=== PATIENT | female | born 1960 | race Caucasian/White ===

== ENCOUNTER 2016-04-20 05:43 | Emergency (ER) | payer BC ==
[~2016-04-20] VITALS: Ht 160 cm; Wt 88.9 kg
--- NOTE | 2016-04-20 06:36 | EKG ---
[facility] [address] [place] [address] Test Date: 2016-04-20 Test Time: 05:55:22 Pat Name: ONI MENA Department: Room: Gender: F [employer] Member: : 1960 Requested By: MARIANNE JONES Order Number: [id number] Reading MD: Nidhi Roque Measurements Intervals [place] Rate: 89 P: 39 MA: 132 QRS: -20 QRSD: 86 T: 55 QT: 364 QTc: 449 Interpretive Statements SINUS RHYTHM LEFTWARD AXIS NO SPECIFIC ECG ABNORMALITIES RI6.01 No previous ECG available for comparison Electronically Signed On 04-21-2016 0:45:31 ACCOUNT UNDERWRITER by Nidhi Roque
--- NOTE | 2016-04-20 06:39 | ED.ADGEN ---
Past Medical History Past Medical History: No Pertinent History Past Surgical History: , Other Additional Past Surgical Histo: BILATERAL KNEE SURGERY Alcohol Use: None Drug Use: None Adult General Chief Complaint Chief Complaint: Palpitations HPI HPI Patient is a 55 year old woman, with no significant past medical history, who presents to the emergency department with a complaint of palpitations. Patient states that she experienced a "fluttering" in her chest that began while she was watching TV around 8:30 last night, and persisted on and off for about an hour. Patient states that she went to bed shortly after 9:30, slept throughout the night without any issue, states that when she awoke this morning she noted she was getting experiencing the fluttering sensation, and came to the ED for evaluation. She denies any chest pain, shortness of breath, any nausea or vomiting, any weakness numbness or tingling, any headache, any injuries, any similar symptoms previously. States that she had her typical cup of coffee during the day, denies any supplements, any other medications, other exposures or ingestions. At this time she states she is not experiencing any sensations, and they have been absent since shortly before she arrived in the emergency department. No swelling extremities, recent travel or surgery, history of DVT or PE himself or family members. Patient did take an aspirin and Aleve before coming to the ED today. Review of Systems Review of Systems Constitutional: Denies fever or chills. [] Eyes: Denies change in visual acuity. [] HENT: Denies nasal congestion or sore throat. [] Respiratory: Denies cough or shortness of breath. [] Cardiovascular: Denies chest pain or edema. [Palpitations. GI: Denies abdominal pain, nausea, vomiting, bloody stools or diarrhea. [] : Denies dysuria. [] Musculoskeletal: Denies back pain or joint pain. [] Integument: Denies rash. [] Neurologic: Denies headache, focal weakness or sensory changes. [] Endocrine: Denies polyuria or polydipsia. [] Lymphatic: Denies swollen glands. [] Psychiatric: Denies depression or anxiety. [] Allergies Allergies Allergies Coded Allergies Type Severity Reaction Last Updated Verified No Known Drug Allergies 04/20/16 No Physical Exam Physical Exam Constitutional: Well developed, well nourished, no acute distress, non-toxic appearance. [] HENT: Normocephalic, atraumatic, bilateral external ears normal, oropharynx moist, no oral exudates, nose normal. [] Eyes: PERRLA, EOMI, conjunctiva normal, no discharge. [] Neck: Normal range of motion, no tenderness, supple, no stridor. [] Cardiovascular:Heart rate regular rhythm, no murmur, S1, S2, no rubs or gallops. [] Lungs & Thorax: Bilateral breath sounds clear to auscultation, no wheezing, rhonchi, rales. No chest tenderness or crepitus. [] Abdomen: Bowel sounds normal, soft, no tenderness, no masses, no rebound, rigidity, no guarding, no pulsatile masses. [] Skin: Warm, dry, no erythema, no rash. [] Back: No tenderness, no CVA tenderness. [] Extremities: No tenderness, no cyanosis, no clubbing, ROM intact, no edema. Negative Homans sign. [] Neurologic: Alert and oriented X 3, normal motor function, normal sensory function, no focal deficits noted. [] Psychologic: Affect normal, judgement normal, mood normal. [] Current Patient Data Vital Signs Vital Signs Date Time Temp Pulse Resp B/P Pulse Ox O2 Delivery O2 Flow Rate FiO2 04/20/16 08:30 74 19 113/69 97 Room Air 04/20/16 05:50 97.9 97.9 Lab Values Laboratory Tests Test 04/20/16 06:15 04/20/16 07:35 White Blood Count 6.0x10^3/uL (4.0-11.0) Red Blood Count 5.46x10^6/uL (3.50-5.40) H Hemoglobin 15.8g/dL (12.0-15.5) H Hematocrit 47.4% (36.0-47.0) H Mean Corpuscular Volume 87fL (79-100) Mean Corpuscular Hemoglobin 29pg (25-35) Mean Corpuscular Hemoglobin Concent 33g/dL (31-37) Red Cell Distribution Width 13.4% (11.5-14.5) Platelet Count 234x10^3/uL (140-400) Sodium Level 142mmol/L (136-145) Potassium Level 3.8mmol/L (3.5-5.1) Chloride Level 105mmol/L (98-107) Carbon Dioxide Level 25mmol/L (21-32) Anion Gap 12 (6-14) Blood Urea Nitrogen 16mg/dL (7-20) Creatinine 0.7mg/dL (0.6-1.0) Estimated GFR (Cockcroft-Gault) 86.6 Glucose Level 101mg/dL (70-99) H Calcium Level 8.8mg/dL (8.5-10.1) Phosphorus Level 3.3mg/dL (2.6-4.7) Magnesium Level 1.8mg/dL (1.8-2.4) Troponin I Quantitative < 0.017ng/mL (0.000-0.055) NK-Wrd-X-Type Natriuretic Peptide 19pg/mL (0-124) Urine Opiates Screen Neg (NEG) Urine Methadone Screen Neg (NEG) Urine Barbiturates Neg (NEG) Urine Phencyclidine Screen Neg (NEG) Urine Amphetamine/Methamphetamine Neg (NEG) Urine Benzodiazepines Screen Neg (NEG) Urine Cocaine Screen Neg (NEG) Urine Cannabinoids Screen Neg (NEG) Urine Ethyl Alcohol Neg (NEG) Laboratory Tests 04/20/16 06:15 Laboratory Tests 04/20/16 06:15 EKG EKG EC: Sinus rhythm, heart rate 89 beats/minute, left axis deviation, QTC of 449, TN 132, QRS of 86, no ST elevations or depressions, aside from left axis deviation, no other abnormalities identified. As interpreted by me. [] Radiology/Procedures Radiology/Procedures [][address] [id number] IMAGING REPORT Signed PATIENT: ONI MENA ACCOUNT: [id number] : 1960 LOCATION: ER AGE: 55 SEX: F EXAM STATUS: REG ER ORD. PHYSICIAN: MARIANNE JONES DO REASON: Palpitations PROCEDURE: PORTABLE CHEST 1V Indication heart palpitations. A single view of the chest was obtained. No prior imaging is available. The heart, pulmonary vessels and mediastinum appear normal. The lungs are clear. There is no pleural fluid or pneumothorax. There are calcified left hilar lymph nodes. There are deformities, compatible with healed fractures, associated with right ribs. IMPRESSION: No acute or significant finding apparent in the chest DICTATED and SIGNED BY: JANENE KAPLAN MD DATE: 04/20/16726 CC: MARIANNE JONES DO; NO PCP ~ Course & Med Decision Making Course & Med Decision Making Pertinent Labs and Imaging studies reviewed. (See chart for details) Patient in sinus rhythm on the monitor, is denying complaints at this time. Has no concerning history or exposures which she reports. Patient observed in the ED over several hours, with no events reported on the monitor. States that she had one very brief episode of palpitations in the ED, but as stated no concerning findings were identified on her rhythm strips. Laboratory studies within normal limits aside from mild hyperglycemia, finding were discussed with patient, who received an ambulatory trial in the ED without any concerning findings identified, no recurrence of symptoms, pulse and oxygen saturation remained within normal limits. Discussed follow-up with Dr. Sy in his office, discussed use of a Holter monitor which we can arrange in the emergency department, patient initially voiced agreement. I did speak with Dr. Sy was agreeable with this plan for follow-up in the office tomorrow after 24 monitoring. However when the distribution technician Elida, brought the Holter monitor to the ED, the patient did decline Holter monitoring, stating that "I just don't want to wear that thing". I did discuss the patient that not wearing a Holter will significantly limit the ability to evaluate her symptoms, and we could potentially miss arrhythmia or other concerning findings, patient states that she understands, but is not interested in using a Holter monitor this time. I did contact Dr. Sy and update him with this information, the plan is for the patient to follow-up in his office for additional evaluation, to arrange for a primary care provider from list given to her discharge, and to return to the ED if any new or concerning symptoms develop. Patient discharged home in stable condition with plan as above with significant other. Dragon Disclaimer Dragon Disclaimer This electronic medical record was generated, in whole or in part, using a voice recognition dictation system. Departure Impression: Primary Impression: Palpitations Disposition: HOME, SELF-CARE Condition: STABLE MARIANNE JONES DO Apr 20, 2016 06:39
[2016-04-20 07:20] LABS: CALCIUM 8.8 mg/dL (8.5-10.1); CREATININE 0.7 mg/dL (0.6-1.0); GFR 86.6; POTASSIUM 3.8 mmol/L (3.5-5.1)
[2016-04-20 07:23] LABS: MAGNESIUM 1.8 mg/dL (1.8-2.4); PHOSPHORUS 3.3 mg/dL (2.6-4.7)
--- NOTE | 2016-04-20 07:31 | RAD ---
Indication heart palpitations. A single view of the chest was obtained. No prior imaging is available. The heart, pulmonary vessels and mediastinum appear normal. The lungs are clear. There is no pleural fluid or pneumothorax. There are calcified left hilar lymph nodes. There are deformities, compatible with healed fractures, associated with right ribs. IMPRESSION: No acute or significant finding apparent in the chest
[2016-04-20 08:01] LABS: BARBITURATES NEG (NEG); BENZODIAZEPINES NEG (NEG); CANNABINOIDS NEG (NEG); COCAINE NEG (NEG); METHADONE NEG (NEG); OPIATES NEG (NEG); PHENCYCLIDINE NEG (NEG)
[2016-04-20 08:06] LABS: HEMATOCRIT 47.4 % (36.0-47.0); HEMOGLOBIN 15.8 g/dL (12.0-15.5); RED BLOOD COUNT 5.46 x10^6/uL (3.50-5.40); RED CELL DISTRIBUTION WIDTH 13.4 % (11.5-14.5)
[2016-04-20 08:11] LABS: ETHANOL, URINE NEG (NEG)
[2016-04-20 09:00] VITALS: BP 112/73
== END 2016-04-20 09:20 | disposition home or self-care (01) ==
LOC: ER 05:43
DX: R00.2 Palpitations (principal)
CPT/HCPCS: 36415; 71010; 80048; 83735; 83880; 84100; 84484; 85027; 93005; 99285; G0481